=== PATIENT | male | born 1945 | race Caucasian/White ===

== ENCOUNTER → 2017-05-12 | Outpatient (CLI) | payer BC ==
[~2017-05-12] MED LIST: ALBUAER19 INH; ALLO300T2 PO; ASMIN/60 INH; ASPCH81X PO; CLR10 PO; CRS/10 PO; FERR1TAB13 PO; GLYB5TAB8 PO; LISI-725 PO; METF-383 PO; METO50TA7 PO; NRN/300 PO; NTRGSL/4 UT; OMEG10007 PO; PRLSR20 PO; SAXAGLIPTIN PO; SERT25TA PO; TAMS0.4C38 PO; TRAM-10 PO
--- NOTE | 2017-05-12 09:48 | DIAGNOSTIC IMAGING REPORT ---
CT OF THE HEAD WITHOUT CONTRAST CLINICAL HISTORY: Dizziness. COMPARISON STUDY: No previous studies for comparison. CT DOSE: 614.27 mGy.cm TECHNIQUE: Helical axial images of the head were obtained without IV contrast. Automated exposure control was utilized for the study. FINDINGS: No acute intracranial hemorrhage, midline shift or mass effect is present. Mild dilatation of the lateral ventricles is likely due to central atrophy. The basilar cisterns are patent. There are no extra-axial collections. There are no findings to suggest acute dural sinus thrombosis or acute territorial infarct. A few white matter hypodensity suggests small vessel disease. There are no significant calvarial abnormalities. IMPRESSION: No acute intracranial findings. Electronically signed by: Abel Aguilar M.D. 05/12/2017 9:46 AM Dictated Date/Time: 05/12/2017 9:39 AM
== END | disposition home or self-care (01) ==
LOC: C.CTS 09:13
PROVIDERS: ATTEND Nurse Practitioner Family
DX: I10 Essential (primary) hypertension (principal); R42 Dizziness and giddiness

== ENCOUNTER → 2018-06-30 | Outpatient (CLI) | payer BC ==
[~2018-06-30] MED LIST changes: -METO50TA7 PO; +METO50TA8 PO
== END | disposition home or self-care (01) ==
LOC: C.RDSM 10:26
PROVIDERS: ATTEND Orthopaedic Surgery Sports Medicine
DX: M25.511 Pain in right shoulder (principal)